=== PATIENT | female | born 1985 | race Caucasian/White ===

== ENCOUNTER 2016-04-30 05:33 | Inpatient (IN) | payer MEDICAID, SELFPAY ==
[2016-04-23 08:05] VITALS: BMI 42.3
[2016-04-30] MEDS ORDERED: AMPICILLIN 2 GM in NS 100 ML IV ONE (05:50)
[2016-04-30] MEDS: LR 1,000 ML IV SCH ×2 (05:50→16:08)
[2016-04-30] MEDS ORDERED: BUTORPHANOL 1 MG/ML VIAL IV PRN (05:50)
[2016-04-30] MEDS ORDERED: LR 500 ML IV PRN (05:50)
[2016-04-30] MEDS ORDERED: LIDOCAINE 1% 30 ML VIAL (PRESERVATIVE FREE) ONE (05:51)
[2016-04-30] MEDS ORDERED: OXYTOCIN 1,000 ML IV ONE (05:51)
[2016-04-30] MEDS ORDERED: Vaccine Screening Complete SCH (06:00)
[2016-04-30] MEDS ORDERED: OXYTOCIN 1,000 ML IV SCH (06:00)
[2016-04-30 06:38] LABS: AUTOMATED BASOPHIL 1.1 % (0-2); AUTOMATED EOSINOPHIL 1.1 % (0-5); AUTOMATED LYMPH 18.2 % (17-44); AUTOMATED MONOCYTE 5.6 % (3-10); MPV 10.1 fL (7.4-10.4)
--- NOTE | 2016-04-30 09:37 | HISTPHYS ---
- HISTORY OF PRESENT ILLNESS Age: 31 Estimated Due Date: 05/14/16 Gestational Age: 38 : 3 Para: 2 Patient Presents to:: Labor & Delivery Presents for:: Induction of Labor Current : Diabetes (gestational diabetes), GBS +, Other Complications ( obesity) - REVIEW OF SYSTEMS Reports/Denies: Reports: Movement. Denies: Complaints, Vaginal Bleeding, Contractions, Leaking Fluid Pain: Reports: Well Managed - ALLERGIES Allergies Allergy/AdvReac Type Severity Reaction Status Date / Time No Known Allergies Allergy Verified 04/30/16 05:48 - PAST MEDICAL HISTORY hx of migraines - PAST SURGICAL HISTORY Reports: Tonsillectomy hernia repair - SOCIAL HISTORY Smoking Status: Former smoker - GENITOURINARY HISTORY HX : 3 Para: 2 Live Deliveries (# of pregnancies resulting in a live ): 2 1 Sex: Male Weight: 7-7 Weeks Gestation: 40 2 Sex: Female Weight: 5-3 Weeks Gestation: 40 Complications with or Delivery: Reports: High Blood Pressure, Vacuum Assisted - PHYSICAL EXAM Vital Signs:: Temperature: 97.6 F (04/30/16 05:54) HR: 88 (04/30/16 05:54) RR: 20 (04/30/16 05:54) BP: 107/62 (04/30/16 05:54) Pulse Ox: () 04/30/16 06:20 GENERAL: Alert, Oriented, No Acute Distress ABDOMEN: Gravid, Non-Distended, Non-Tender, Obese, Soft GENITOURINARY: Normal. negative: Lesions, Mass MUSCULOSKELETAL: Normal EXTERMITIES: Moves All Extremeties FERNANDA'S SIGN: negative: Bilateral Dilation (cm): 1.5 Effacement (%): 60 Station: -3 Heart Rate: 120's Moderate Variability Contractions: Regular Membranes: Intact - ASSESSMENT (ACTIVE PROBLEMS) (1) 38 weeks gestation of Acute Z3A.38 - 38 WEEKS GESTATION OF (2) Obesity affecting in third trimester Acute O99.213 - OBESITY COMPLICATING , THIRD TRIMESTER; E66.9 - OBESITY, UNSPECIFIED (3) Elective induction of labor planned Acute [id number] - (4) Gestational diabetes mellitus (GDM) affecting third Acute O24.419 - GESTATIONAL DIABETES MELLITUS IN , UNSP CONTROL; O09.40 - SUPERVISION OF W GRAND MULTIPARITY, UNSP TRIMESTER - PLAN Induction of Labor
[2016-04-30] MEDS: AMPICILLIN 1 GM in NS 100 ML IV SCH ×2 (10:09→17:12)
--- NOTE | 2016-04-30 12:57 | OBGYNPROG ---
Note Pt was examined. CVX was 1.5/40/-3. Pt is 38 weeks. Discussed with pt that her cervix is unfavorable at this point. Discussed if there was any reason that she knew about for her induction at 38 weeks. Pt did not know. Spoke with MD that scheduled the induction and she stated it was because the pt had requested it due to maternal discomfort as well as gestational diabetes with decent control. Pt given 3 options. 1. continue the induction, 2. stop induction and place cervidil with IOL on Tuesday, 3. Stop induction, go home with f/u in office tue or . Pt desires to go home. Pitocin was stopped and we will allow contractions to stop before going home. Currently FHT: 120's and Reactive.Office is aware of follow up
[2016-04-30 14:11] VITALS: BP 112/62; PULSE 75; TEMP 98.3
--- NOTE | 2016-04-30 17:16 | OBGYNPROG ---
Note Pt has been monitored to allow for her contractions to subside. Fetus remains reactive, her cvx is unchanged. Pt will be discharged home and will be reevaluated next week. We reconsider induction of labor next week.
--- NOTE | 2016-04-30 17:19 | PCM.DCS92 ---
- Primary/Secondary Discharge Diagnoses (1) 38 weeks gestation of Acute Z3A.38 - 38 WEEKS GESTATION OF (2) Obesity affecting in third trimester Acute O99.213 - OBESITY COMPLICATING , THIRD TRIMESTER; E66.9 - OBESITY, UNSPECIFIED (3) Elective induction of labor planned Acute [id number] - (4) Gestational diabetes mellitus (GDM) affecting third Acute O24.419 - GESTATIONAL DIABETES MELLITUS IN , UNSP CONTROL; O09.40 - SUPERVISION OF W GRAND MULTIPARITY, UNSP TRIMESTER (5) Failed induction of labor Acute O61.9 - FAILED INDUCTION OF LABOR, UNSPECIFIED medical O61.0 - Failed medical induction of labor - HOSPITAL COURSE /Op Complications: None - DISCHARGE INSTRUCTIONS Discharge Disposition: Home Discharge Condition: Good Cognitive Discharge Status: Unimpaired Fuctional Discharge Status: Independent Patient Leaving with Prescriptions?: None Home Medications/ New Prescriptions: No Action Vits W-Ca,Fe,FA(<1Mg) [] 1 tab PO DAILY Referrals: Daniel Bee MD [Staff Physician] - 1-2 Days (tuesday or tuesday in office, call for appt) - Diet Diet at Discharge: Diabetic - Activity Activity: No Heavy Lifting, Pelvic Rest - Instructions Call Physician for: Regular Contractions, Decreased Movement, Pain/ Redness in Calf/Leg, Rupture of Membranes, Temperature Above 100.4, Vaginal Bleeding Discontinue use of:: Alcohol, All Illegal Substances, All Types of Tobacco - Incision Incision, Lacerations, or Tears: No - DC Summary Notes Discharge Medications: *See "Discharge Medication List" for a complete list of Home Medications and Discharge Medications.* Obstetric Hospital Course - Admitting Diagnosis Reason for Visit: Induction of Labor Admission Date: 04/30/16 Admission time: 05:45 Gestational Age: 38 - Data Feeding Plans for : Bottle Plans Circumcision: No
== END 2016-04-30 17:43 | disposition home or self-care (01) | DRG 781 ==
LOC: MASU 05:33
PROVIDERS: ADMIT Obstetrics & Gynecology; ATTEND Obstetrics & Gynecology
PROC: 3E033VJ Introduction of Other Hormone into Peripheral Vein, Percutaneous Approach (ICD-10-PCS; principal; 2016-04-30)
DX: O24.410 Gestational diabetes mellitus in pregnancy, diet controlled (principal); O99.820 Streptococcus B carrier state complicating pregnancy; O61.0 Failed medical induction of labor; O99.213 Obesity complicating pregnancy, third trimester; Z3A.38 38 weeks gestation of pregnancy; Z87.891 Personal history of nicotine dependence
CPT/HCPCS: 81002; 82962; 85025; 86592; 86900; 86901; 96361; 96365; 96366; 96368; J0290; J2001; J2590; J7030

== ENCOUNTER 2016-05-07 05:29 | Inpatient (IN) | payer MEDICAID, SELFPAY ==
[2016-05-07] MEDS ORDERED: OXYTOCIN 1,000 ML IV SCH (05:31)
[2016-05-07] MEDS ORDERED: LR 250 ML IV PRN (05:31)
[2016-05-07] MEDS ORDERED: LR 500 ML IV PRN ×2 (05:31→08:08)
[2016-05-07] MEDS ORDERED: BUTORPHANOL 1 MG/ML VIAL IV PRN (05:31)
[2016-05-07] MEDS ORDERED: LR 1,000 ML IV SCH ×2 (05:31→17:44)
[2016-05-07 05:51] VITALS: BMI 42.7
[2016-05-07] MEDS ORDERED: LIDOCAINE 1% 30 ML VIAL (PRESERVATIVE FREE) ONE (05:58)
[2016-05-07] MEDS ORDERED: Vaccine Screening Complete SCH ×2 (06:00→11:00)
[2016-05-07] MEDS ORDERED: AMPICILLIN 2 GM in NS 100 ML IV ONE (06:00)
[2016-05-07 06:33] LABS: SEG NEUTROPHIL 73 % (45-76)
[2016-05-07] MEDS ORDERED: Fentanyl/Bupivacaine 100 ML EPI ONE (07:54)
--- NOTE | 2016-05-07 07:55 | HISTPHYS ---
- HISTORY OF PRESENT ILLNESS Age: 31 Estimated Due Date: 05/14/16 Gestational Age: 39 : 3 Para: 2 Patient Presents to:: Labor & Delivery Presents for:: Induction of Labor Current : Diabetes, GBS + - REVIEW OF SYSTEMS Reports/Denies: Denies: Complaints Pain: Reports: Abdominal - ALLERGIES Allergies Allergy/AdvReac Type Severity Reaction Status Date / Time No Known Allergies Allergy Verified 05/07/16 05:41 - PAST MEDICAL HISTORY Reports: Diabetes - PAST SURGICAL HISTORY Reports: Tonsillectomy hernia - SOCIAL HISTORY Smoking Status: Former smoker - GENITOURINARY HISTORY HX : 3 Para: 2 Live Deliveries (# of pregnancies resulting in a live ): 2 1 Weight: 7-7 2 Weight: 5-3 Complications with or Delivery: Reports: High Blood Pressure, Vacuum Assisted - PHYSICAL EXAM Vital Signs:: Temperature: 98.3 F (05/07/16 05:43) HR: 99 (05/07/16 05:43) RR: 20 (05/07/16 05:43) BP: 105/68 (05/07/16 05:43) Pulse Ox: () GENERAL: Alert, Oriented, No Acute Distress, Anxious HEENT: Normal CARDOVASCULAR/CHEST: Normal RESPIRATORY: Normal - CTA ABDOMEN: Gravid Fundal Height (cm): 40 GENITOURINARY: Normal. negative: Lesions MUSCULOSKELETAL: Normal EXTERMITIES: Moves All Extremeties Dilation (cm): 3.5 Effacement (%): 90 Station: -2 Heart Rate: 145 Reactive Contractions: Regular Membranes: AROM Amniotic Fluid: Clear - ASSESSMENT (ACTIVE PROBLEMS) (1) Term Acute Z34.80 - ENCOUNTER FOR SUPRVSN OF NORMAL , UNSP TRIMESTER (2) Gestational diabetes Acute O24.419 - GESTATIONAL DIABETES MELLITUS IN , UNSP CONTROL (3) Elective induction of labor planned Acute [id number] - - PLAN Admit Other Plan: 31 yo at term admitted with gestational diabetes for induction of labor. Admit, arom, pitocin per protocol. Pos screening for gbbs, is on meds. Expect delivery today. EFW 8lbs
[2016-05-07] MEDS ORDERED: ONDANSETRON HCL 4 MG/2 ML VIAL IV PRN (08:08)
[2016-05-07] MEDS ORDERED: LR 500 ML IV ONE (08:08)
[2016-05-07] MEDS ORDERED: METOCLOPRAMIDE 10 MG/2 ML VIAL IV PRN (08:08)
[2016-05-07] MEDS ORDERED: NALOXONE 0.4 MG/ML AMPULE IV PRN (08:08)
[2016-05-07] MEDS ORDERED: DIPHENHYDRAMINE 50 MG/ML VIAL IV PRN (08:08)
[2016-05-07] MEDS ORDERED: EPHEDrine 50 MG/ML VIAL IV PRN (08:08)
--- NOTE | 2016-05-07 08:09 | HIM.ANES ---
Anesthesia Evaluation & Plan - Focused Review of Systems Cardiac History: No: Hx Cardiac Disorders HEENT: Yes: Other HEENT Problems Gastrointestinal: Yes: Hx Gastrointestinal Disorders Neurological/Musculoskeletal: Yes: Hx Migraine, Hx Neurological Disorders Psychological: Yes Hx Depression, No Hx Mental/Emotional Disorders HX Other Psyco/Soc Problems: PTSD Smoking Status: Former smoker Surgical History: Yes: T&A (2003) - Focused Physical Exam Mallampati: Class IV Thyromental Distance: Greater than 3 Cardiovascular/Chest: Normal Respiratory: Lungs clear Any relatives with a history of Malignant Hyperthermia?: No Beta Jun given (if appropriate): N/A Other: Problem List Problem Status Onset Elective induction of labor planned Acute Gestational diabetes Acute Term Acute 23 weeks gestation of Acute 24 weeks gestation of Acute 38 weeks gestation of Acute Bacterial vaginosis Acute Elective induction of labor planned Acute Failed induction of labor Acute False labor before 37 completed weeks of gestation Acute Gestational diabetes mellitus (GDM) affecting third Acute Obesity affecting in third trimester Acute Vaginal discharge during in second trimester Acute CBC/BMP/Other 05/07/16 05:50 Allergies Allergy/AdvReac Type Severity Reaction Status Date / Time No Known Allergies Allergy Verified 05/07/16 05:41 Home Medications Medication Instructions Recorded Last Taken Type Vits W-Ca,Fe,FA(<1Mg) 1 tab PO DAILY 12/27/15 1 Day Ago History [] Height and Weight Patient's height 5 ft 3 in Patient's weight 237 lb BMI 42.7 Vital Signs Temperature 98.3 F 05/07/16 05:43 Pulse Rate 99 05/07/16 05:43 Respiratory Rate 20 05/07/16 05:43 Blood Pressure 105/68 05/07/16 05:43 Pulse Oxygen Saturation - Anesthetic Plan Anesthesia Type: Epidural ASA Class: 3 -: I have examined this patient and reviewed the medical record. The patient has been assessed prior to anesthesia. Risks and benefits of anesthesia and anesthetic technique options have been discussed and all questions answered. The patient accepts the risk and desires me to proceed with the planned anesthetic.
--- NOTE | 2016-05-07 08:44 | HIM.ANESP ---
Procedure Note DATE OF PROCEDURE: 05/07/16 PREOPERATIVE DIAGNOSIS: Labor Pain Control. POSTOPERATIVE DIAGNOSIS: Same PROCEDURE: Epidural PERFORMING PROVIDER: Alli Espitia MD DIAGNOSIS: Labor SURGEON: [Martin] TIME OUT: [810] Anesthesia START time: [810] Anesthesia STOP (Delivery) Time : MEDICATIONS: INF Bupivacaine 0.125% + Fentanyl 3mcg/ml ml/hr NEEDLE: Tuohy 17G STERILE BARRIERS: sterile x 3, mask, sterile gloves. APPROACH: [Paramedian Right] @ L3/4 ATTEMPTS:[1] COMPLICATIONS: None. BLOOD LOSS: 0 cubic centimeters. PROCEDURE FINDINGS AND TECHNIQUE: At the request of the patient and photo tech , an Epidural Block was performed for labor pain relief. Epidural Risk, benefits and alternatives of the procedure were explained and questions answered. Informed consent was obtained, confirmed with patient and on chart. Time out was performed. Contraction, Pulse oximetry, EKG and BP monitoring were established. The patient is a [sitting] position and lumbar area was prepped and draped in a sterile manner. Skin anesthesia was obtained with 1% Xylocaine infiltration. The [Epidural] was done in the usual manner. A Tuohy needle was inserted with loss of resistance to [NS] @ [7.5]cm. Local anesthetic was injected in incremental volumes with negative aspirations throughout, Bolus dose: Lidocaine [1] % [4] cc. There was no pain on injection. Epidural catheter threaded [5] cm into epidural space. Test dose Lidocaine 1.5 % with epinephrine 1:200,000, 3 ml via epidural catheter. Negative test dose. SaO2 [98]% EKG SR Loading Dose 0 mcg/ml Fentanyl Infusing Dose Bupivacaine 0.125% + Fentanyl 3mcg/ml ml/hr See Watch Child Record (chart) Patient tolerated the procedure well without complications.
[2016-05-07] MEDS ORDERED: Fentanyl/Bupivacaine 100 ML EPI SCH (09:00)
--- NOTE | 2016-05-07 09:40 | OBGYNPROG ---
- Exam Vital Signs: Temperature: 98.3 F (05/07/16 05:43) HR: 99 (05/07/16 05:43) RR: 20 (05/07/16 05:43) BP: 105/68 (05/07/16 05:43) Pulse Ox: () Heart Rate: 142 Moderate Variability, Variable Deceleration Contraction Pattern: Regular Dilation (cm): 7.5 Effacement (%): 90 Station: -2 - Plan Continue Present Management patient with recurrent variables with contractions, quick return to baseline with good btbv. Making good progress, continue current tx. Expect delivery soon.
[2016-05-07] MEDS ORDERED: AMPICILLIN 1 GM in NS 100 ML IV SCH (10:00)
[2016-05-07] MEDS ORDERED: ZOLPIDEM TARTRATE 5 MG TAB PO PRN (10:45)
[2016-05-07] MEDS ORDERED: OXYTOCIN 1,000 ML IV ONE (10:45)
[2016-05-07] MEDS ORDERED: DIBUCAINE OINTMENT 1 OZ TUBE TOP PRN (10:45)
[2016-05-07] MEDS ORDERED: OXYCODONE HCL 5 MG TABLET PO PRN (10:45)
[2016-05-07] MEDS ORDERED: SODIUM CHLORIDE 0.9% 3 ML FLUSH FLUSH PRN (10:45)
[2016-05-07] MEDS ORDERED: LANOLIN OINTMENT 0.25 OZ TUBE TOP PRN (10:45)
[2016-05-07] MEDS ORDERED: Pharmacy Order Set Alert SCH (11:00)
[2016-05-07] MEDS: IBUPROFEN 800 MG TAB PO SCH ×2 (12:01→17:59)
--- NOTE | 2016-05-07 15:19 | OBDELNOTE ---
Delivery Note - Problem/Diagnosis (1) Term Status: Acute (2) Gestational diabetes Status: Acute (3) Elective induction of labor planned Status: Acute (4) Vaginal delivery Status: Acute (5) Single live Status: Acute - Admitting Diagnosis Reason for Visit: Induction of Labor Admission Date: 05/07/16 Admission time: 05:29 Gestational Age: 39 - Procedures Procedure(s): Non-Stress Test Labor Anesthesia/Analgesia: IV Medication, Epidural Date: 05/07/16 Spontaneous Vaginal Delivery Presentation: Vertex Episiotomy: None Laceration: None EBL: 150 Fluid: Clear Placenta: Spontaneous Description: Normal Cord: 3 Vessels, Nuchal Cord - Procedures Procedures: None - Infant Data Sex: Male Weight: 2.778 kg (1min): 9 (5min): 10 Feeding Plans for Infant: Bottle Complications: No Complications to:: LDRP/Mother's Room - /Operative Complications /Op Complications: None Discharge Planning - REASON FOR ADMISSION Patient Presents to:: Labor & Delivery Reason for Visit: Induction of Labor - DISCHARGE INSTRUCTIONS
--- NOTE | 2016-05-07 15:21 | PCM.DCS92 ---
- Primary/Secondary Discharge Diagnoses (1) Term Acute Z34.80 - ENCOUNTER FOR SUPRVSN OF NORMAL , UNSP TRIMESTER (2) Gestational diabetes Acute O24.419 - GESTATIONAL DIABETES MELLITUS IN , UNSP CONTROL (3) Elective induction of labor planned Acute [id number] - (4) Vaginal delivery Acute O80 - ENCOUNTER FOR FULL-TERM UNCOMPLICATED DELIVERY (5) Single live Acute Z37.0 - SINGLE LIVE - HOSPITAL COURSE /Op Complications: None - DISCHARGE INSTRUCTIONS Discharge Disposition: Home Discharge Condition: Good Cognitive Discharge Status: Unimpaired Fuctional Discharge Status: Independent Patient Leaving with Prescriptions?: Yes Home Medications/ New Prescriptions: New Hydrocodone Bit/Acetaminophen [Hydrocodon-Acetaminophen 5-325] 1 - 2 tab PO Q4H PRN #30 tab PRN Reason: Pain Ibuprofen Tablet [Motrin] 800 mg PO TID #30 tab No Action Vits W-Ca,Fe,FA(<1Mg) [] 1 tab PO DAILY Referrals: Serene Salazar MD [Staff Physician] - Six Weeks (CALL THE OFFICE TO SCHEDULE FOLLOW UP APPOINTMENT) - Diet Diet at Discharge: Regular - Activity Activity: Pelvic Rest No Driving for: 2 weeks - Instructions Call Physician for: Sudden/Sever Chest Pain, Foul Smelling Discharge, Pain/ Redness in Calf/Leg, Temperature Above 100.4 - DC Summary Notes Discharge Medications: *See "Discharge Medication List" for a complete list of Home Medications and Discharge Medications.* Obstetric Hospital Course - Admitting Diagnosis Reason for Visit: Induction of Labor Admission Date: 05/07/16 Admission time: 05:29 Gestational Age: 39 - Procedures Procedure(s): Non-Stress Test Labor Anesthesia/Analgesia: IV Medication, Epidural Date: 05/07/16 Spontaneous Vaginal Delivery Presentation: Vertex Episiotomy: None Laceration: None EBL: 150 Fluid: Clear Placenta: Spontaneous Description: Normal Cord: 3 Vessels, Nuchal Cord - Procedures Procedures: None - Data Sex: Male Weight: 2.778 kg (1min): 9 (5min): 10 Feeding Plans for Infant: Bottle [place] Complications: No Complications [place] to:: LDRP/Mother's Room - /Operative Complications /Op Complications: None
[2016-05-07] MEDS ORDERED: SODIUM CHLORIDE 0.9% 3 ML FLUSH FLUSH SCH (18:00)
[2016-05-07] MEDS ORDERED: Docusate Sodium 100 MG CAP PO SCH (21:00)
[2016-05-08] MEDS: IBUPROFEN 800 MG TAB PO SCH ×2 (02:16→10:26)
[2016-05-08 05:27] VITALS: BP 114/61; PULSE 71; TEMP 98
--- NOTE | 2016-05-08 09:11 | OBGYNPROG ---
- Subjective Post Day: 1 Reports: Ambulating, Out of Bed, Tolerating Regular Diet, Voiding Freely. Denies: Complaints Pain: Reports: None - Objective Vital Signs: Temperature: 98.0 F (05/08/16 05:27) HR: 71 (05/08/16 05:27) RR: 18 (05/08/16 05:27) BP: 114/61 (05/08/16 05:27) Pulse Ox: () Laboratory Results - last 24 hr 05/07/16 05/07/16 05/08/16 05:50 10:00 05:56 Hgb 9.6 L D Hct 30.4 L POC Capillary Glucose 97 RPR Nonreactive General: Alert, Oriented, No Acute Distress HEENT: Normal Cardiovascular/Chest: Normal Respiratory: Normal - CTA ABDOMEN: Soft MUSCULOSKELETAL: Normal EXTERMITIES: Moves All Extremeties. Denies: Edema OBGYN Progress Note - ASSESSMENT (1) Term Status: Acute Code(s): Z34.80 - ENCOUNTER FOR SUPRVSN OF NORMAL , UNSP TRIMESTER (2) Gestational diabetes Status: Acute Code(s): O24.419 - GESTATIONAL DIABETES MELLITUS IN , UNSP CONTROL (3) Elective induction of labor planned Status: Acute Code(s): [id number] - (4) Vaginal delivery Status: Acute Code(s): O80 - ENCOUNTER FOR FULL-TERM UNCOMPLICATED DELIVERY (5) Single live Status: Acute Code(s): Z37.0 - SINGLE LIVE - PLAN Routine Care, Discharge
== END 2016-05-08 12:06 | disposition home or self-care (01) | DRG 775 ==
LOC: MASU 05:29
PROVIDERS: ADMIT Obstetrics & Gynecology; ATTEND Obstetrics & Gynecology
PROC: 10E0XZZ Delivery of Products of Conception, External Approach (ICD-10-PCS; principal; 2016-05-07)
PROC: 10907ZC Drainage of Amniotic Fluid, Therapeutic from Products of Conception, Via Natural or Artificial Opening (ICD-10-PCS; 2016-05-07)
PROC: 3E033VJ Introduction of Other Hormone into Peripheral Vein, Percutaneous Approach (ICD-10-PCS; 2016-05-07)
PROC: 3E0R3CZ (ICD-10-PCS; 2016-05-07)
DX: O24.420 Gestational diabetes mellitus in childbirth, diet controlled (principal); O99.824 Streptococcus B carrier state complicating childbirth; O76 Abnormality in fetal heart rate and rhythm complicating labor and delivery; O69.81X0 Labor and delivery complicated by cord around neck, without compression, not applicable or unspecified; Z3A.39 39 weeks gestation of pregnancy; Z37.0 Single live birth
CPT/HCPCS: 59400; 62318; 76815; 81002; 82962; 85007; 85014; 85018; 85027; 86592; 86900; 86901; 96361; 96365; 96366; 96368; 96375; J0290; J0595; J2001; J2590; J3490; J7030